=== PATIENT | male | born 1980 | race Hispanic/Latino ===

== ENCOUNTER 2017-07-21 16:46 | Emergency (ER) | payer OTHER ==
[2017-07-21 16:51] VITALS: BP 136/81; RESP 18; TEMP 99; O2SAT 99
[2017-07-21 17:43] LABS: ALB/GLOB RATIO 1.3 (1.0-2.1); ALBUMIN 4.3 g/dL (3.5-5.0); ALT/SGPT 29 U/L (21-72); AST/SGOT 23 U/L (17-59); BASO % 0.4 % (0.0-2.0); BLOOD UREA NITROGEN 21 mg/dl (9-20); CALCIUM 9.2 mg/dL (8.4-10.2); EOS % 0.3 % (0.0-4.0); GFR AFRICAN-AMERICAN > 60; GFR NON-AFRICAN AMERICAN > 60; HEMOGLOBIN 13.4 g/dL (12.0-18.0); LYMPH # 1.9 K/uL (1.0-4.3); LYMPH % 22.5 % (20.0-40.0); MEAN CORPUSCULAR HEMOGLOBIN 29.4 pg (27.0-31.0); MEAN CORPUSCULAR HGB CONC 34.1 g/dL (33.0-37.0); MEAN PLATELET VOLUME 9.1 fl (7.2-11.7); MONO # 0.4 K/uL (0.0-0.8); MONO % 4.8 % (0.0-10.0); NEUT # 6.1 K/uL (1.8-7.0); RBC 4.58 Mil/uL (4.40-5.90); RED CELL DISTRIBUTION WIDTH 12.9 % (11.5-14.5); WHITE BLOOD COUNT 8.4 K/uL (4.8-10.8)
[2017-07-21 17:51] VITALS: PULSE 62
--- NOTE | 2017-07-21 17:51 | ED PDOC ---
HPI: Headache Time Seen by Provider: 07/21/17 16:53 Chief Complaint (Nursing): Dizziness/Lightheaded Chief Complaint (Provider): Headache History Per: Patient History/Exam Limitations: no limitations Onset/Duration Of Symptoms: Hrs (45 minutes prior to arrival) Quality: Sharp Associated Symptoms: Extremity Weakness Additional Complaint(s): 37 year old male self-diagnosed with migraines for approximately 20 years presents to the ED complaining of severe left-sided headache onset 45 minutes ago prior to arrival. Describes the headache as painful, sharp, and electricity- like with associated symptoms of diffused shaking of extremities. Also reports of weakness and numbness of leg and migraine episode that lasted for 2-3 seconds and resolved spontaneously. In-between the episodes he had light- headedness. He took 2 Tylenol onset when he thought it was a migraine and reports of the symptoms due to stress. Reports he has had migraines since he was a teenager which are left-sided, posterior to eye associated with nausea and vomiting. However, the migraine he had yesterday resolved at 10p. Denies loss of consciousness, no fall or injury, loss of sleep or any other symptoms. Patient has not been to his PMD for the last two years and has not had an evaluation for migraines or headache. PMD: Dr. Zeng Past Medical History Reviewed: Historical Data, Nursing Documentation, Vital Signs Vital Signs: Last Vital Signs Temp 99.0 F 07/21/17 16:48 Pulse 64 07/21/17 16:48 Resp 18 07/21/17 16:48 BP 136/81 07/21/17 16:48 Pulse Ox 99 07/21/17 16:48 - Medical History PMH: Depression, Migraine - Surgical History Surgical History: No Surg Hx - Family History Family History: States: Other Other Family History: mother has migraines - Social History Current smoker - smoking cessation education provided: No Alcohol: Other (2-3 drinks in the evening) Drugs: Denies - Allergies Allergies/Adverse Reactions: Allergies Allergy/AdvReac Type Severity Reaction Status Date / Time No Known Allergies Allergy Verified 07/21/17 16:47 Review of Systems ROS Statement: Except As Marked, All Systems Reviewed And Found Negative (As per HPI, otherwise negative) Musculoskeletal: Positive for: Other (weakness and numbess of legs) Neurological: Positive for: Headache. Negative for: Other (loss of consciousness, loss of sleep, trauma) Psych: Positive for: Other (stress) Physical Exam - Reviewed Nursing Documentation Reviewed: Yes Vital Signs Reviewed: Yes - Physical Exam Appears: Positive for: Non-toxic, No Acute Distress Head Exam: Positive for: ATRAUMATIC, NORMOCEPHALIC Skin: Positive for: Warm, Dry Eye Exam: Positive for: EOMI, PERRL ENT: Negative for: Pharyngeal Erythema, Tonsillar Exudate Neck: Positive for: Painless ROM, Supple Cardiovascular/Chest: Positive for: Regular Rate, Rhythm. Negative for: Murmur Respiratory: Positive for: Normal Breath Sounds. Negative for: Wheezing Gastrointestinal/Abdominal: Positive for: Soft. Negative for: Tenderness Back: Positive for: Normal Inspection. Negative for: Decreased ROM Extremity: Positive for: Normal ROM. Negative for: Deformity Lymphatic: Negative for: Adenopathy Neurologic/Psych: Positive for: Alert, firing pin gauger II-XII (intact), Oriented (x3), Mood/ Affect (normal). Negative for: Motor/Sensory Deficits, Aphasia - Laboratory Results Result Diagrams: 07/21/17 17:27 07/21/17 17:27 Urine dip results: Positive for: Ketones - ECG ECG: Positive for: Interpreted By Me, Viewed By Me ECG Rhythm: Positive for: Normal QRS, Normal ST Segment, Sinus Rhythm Rate: 62 O2 Sat by Pulse Oximetry: 99 (RA) Pulse Ox Interpretation: Normal Medical Decision Making Medical Decision Making: Time: 1708 Initial Impression: headache Differential Diagnosis includes but is not limited to: intracerebral mass, atypical mass, seizure, electrolyte abnormalities, stress Initial Plan: --Head w/o Contrast CT --EKG --CMP --Creatine Phosphokinase --Drug screen --LACT Acid, Plasma --Magnesium --Phosphorous --ED Urine Dipstick --CBC w/ Differential --Glucose, Blood, POC --Rate Engineer --Orthostatic BP --Reevaluation Time: 1757 PROCEDURE: CT HEAD WITHOUT CONTRAST. HISTORY: Severe LEFT sided headache and near syncope COMPARISON: None available. TECHNIQUE: Contiguous helical/transaxial computed tomography images were obtained through the head/brain without intravenous contrast. Radiation dose: Total exam DLP = 800.09 mGy-cm. This CT exam was performed using one or more of the following dose reduction techniques: Automated exposure control, adjustment of the mA and/or kV according to patient size, and/or use of iterative reconstruction technique. FINDINGS: HEMORRHAGE: No at the acute parenchymal, subarachnoid nor extra-axial hemorrhage. BRAIN: No mass effect or edema. No atrophy or chronic microvascular ischemic changes. VENTRICLES: Unremarkable. No hydrocephalus. CALVARIUM: Unremarkable. PARANASAL SINUSES: Minor mucosal thickening seen within a few ethmoid air cells. . MASTOID AIR CELLS: Unremarkable as visualized. No inflammatory changes. OTHER FINDINGS: None. IMPRESSION: No acute intracranial hemorrhage. Labs unremarkable. [facility]. Further evaluation and management for other causes can be perfomred outpatient. 7p On reeval pt stable. No episdoes of headache or tremor in ER. DW pt at length concerning findings and plan of care. Scribe Attestation: Documented by Deepa Decker, acting as a scribe for Lacy Heck MD Provider Scribe Attestation: All medical record entries made by the Scribe were at my direction and personally dictated by me. I have reviewed the chart and agree that the record accurately reflects my personal performance of the history, physical exam, medical decision making, and the department course for this patient. I have also personally directed, reviewed, and agree with the discharge instructions and disposition. Disposition - Clinical Impression Clinical Impression: Headache, Tremor, Stress - Disposition Referrals: Kane Mccarthy MD [Medical Doctor] - (CALL TOMORROW TO SETUP FOLLOW UP APPOINTMENT WITHIN A WEEK) Disposition: Routine/Home Disposition Time: 19:00 Condition: STABLE Instructions: Headache, Adult, Stress Forms: [employer] ([employer])
--- NOTE | 2017-07-21 18:00 | CT ---
PROCEDURE: CT HEAD WITHOUT CONTRAST. HISTORY: Severe LEFT sided headache and near syncope COMPARISON: None available. TECHNIQUE: Contiguous helical/transaxial computed tomography images were obtained through the head/brain without intravenous contrast. Radiation dose: Total exam DLP = 800.09 mGy-cm. This CT exam was performed using one or more of the following dose reduction techniques: Automated exposure control, adjustment of the mA and/or kV according to patient size, and/or use of iterative reconstruction technique. FINDINGS: HEMORRHAGE: No at the acute parenchymal, subarachnoid nor extra-axial hemorrhage. BRAIN: No mass effect or edema. No atrophy or chronic microvascular ischemic changes. VENTRICLES: Unremarkable. No hydrocephalus. CALVARIUM: Unremarkable. PARANASAL SINUSES: Minor mucosal thickening seen within a few ethmoid air cells. . MASTOID AIR CELLS: Unremarkable as visualized. No inflammatory changes. OTHER FINDINGS: None. IMPRESSION: No acute intracranial hemorrhage.
[2017-07-21] MEDS ORDERED: Sodium Chloride 0.9% 1,000 ML IV STA (18:03)
[2017-07-21 18:25] LABS: BARBITURATES, UR NEGATIVE (NEGATIVE); BENZODIAZEPINES, UR NEGATIVE (NEGATIVE); OPIATES, UR NEGATIVE (NEGATIVE); PHENCYCLIDINE, UR NEGATIVE (NEGATIVE)
--- NOTE | 2017-07-22 09:00 | CARD ---
APPROVED REPORT EKG Measurement Heart [id number] <Conclusion> Normal sinus rhythm with sinus arrhythmia Normal ECG
== END 2017-07-21 19:16 | disposition home or self-care (01) ==
LOC: H.ER 16:46
DX: R51 Headache (principal); F43.0 Acute stress reaction; F32.9 Major depressive disorder, single episode, unspecified